=== PATIENT | female | born 1950 ===

== ENCOUNTER 2019-11-17 07:46 | Day surgery (SDC) | payer OTHER ==
[~2019-11-17 07:46] MED LIST: FORTEO2.4 ML; NATURE-THROID65 MG PO
[2019-11-17] MEDS ORDERED: NAPROXEN SODIU550 MG PO (13:38)
== END 2019-11-17 17:40 | disposition home or self-care (01) ==
LOC: CIR.AMB 07:46 → ADM 10:45 → CIR.AMB 17:40
DX: N84.0 Polyp of corpus uteri (principal)